=== PATIENT | male | born 1970 ===

== ENCOUNTER 2016-09-10 19:23 | Observation (INO) | payer BC ==
[2016-09-10 19:29] VITALS: TEMP 98.9
[2016-09-10] MEDS ORDERED: Sodium Chloride 0.9% 1,000 ML IV STA (19:48)
--- NOTE | 2016-09-10 19:59 | ED PDOC ---
Arrival/HPI - General Chief Complaint: Abdominal Pain Time Seen by Provider: 09/10/16 19:43 Historian: Patient - History of Present Illness Narrative History of Present Illness (Text): 09/10/16 19:51 46 y.o. male who comes to the ED with complaint of L flank pain starting this morning which improved then worsened again and has been persistent associated with nausea and vomiting. No abd pain or testicular pain or urinary symptoms or hematuria. No cp or sob. Patient took motrin without relief. No history of renal stones. Pain is not worse with movement and no radiation down the leg. Past Medical History - Psychiatric Hx Psychophysiologic Disorder: No Hx Substance Use: No Family/Social History Family/Social History: Other (Grandmother with kidney stones) Smoking Status: Light Smoker < 10 Cigarettes Daily Hx Alcohol Use: Yes Frequency of alcohol use: Socially Hx Substance Use: No Allergies/Home Meds Allergies/Adverse Reactions: Allergies No Known Allergies Allergy (Verified 09/10/16 19:25) Review of Systems - Physician Review All systems were reviewed & negative as marked: Yes - Review of Systems Constitutional: absent: Fevers Eyes: absent: Vision Changes Respiratory: Normal Cardiovascular: Normal Gastrointestinal: Nausea, Vomiting. absent: Abdominal Pain, Constipation, Diarrhea, Hematochezia Genitourinary Male: absent: Dysuria, Frequency, Hematuria, Urinary Output Changes Musculoskeletal: Back Pain Skin: absent: Rash Neurological: absent: Headache, Dizziness, Focal Weakness Endocrine: Normal Hemo/Lymphatic: Normal Psychiatric: Normal Physical Exam Vital Signs Temp Pulse Resp BP Pulse Ox 09/10/16 19:25 98.9 F 55 L 16 117/62 99 Temperature: Afebrile Blood Pressure: Normal Pulse: Regular Respiratory Rate: Normal Appearance: Positive for: Well-Appearing, Non-Toxic, Comfortable Pain Distress: None Mental Status: Positive for: Alert and Oriented X 3 - Systems Exam Head: Present: Atraumatic, Normocephalic Pupils: Present: PERRL Conjunctiva: Present: Normal Mouth: Present: Moist Mucous Membranes Pharnyx: Present: Normal. No: ERYTHEMA, EXUDATE Neck: Present: Normal Range of Motion Respiratory/Chest: Present: Clear to Auscultation, Good Air Exchange. No: Respiratory Distress, Accessory Muscle Use Cardiovascular: Present: Normal S1, S2, Bradycardic. No: Murmurs Abdomen: Present: Normal Bowel Sounds. No: Tenderness, Distention, Peritoneal Signs Genitourinary Male: Present: Normal External Genitalia. No: Lesions, Testicle Tenderness, Penile Swelling, Masses, Testicle Swelling Back: Present: Normal Inspection, CVA Tenderness (L CVA tenderness) Upper Extremity: Present: Normal Inspection. No: Cyanosis, Edema Lower Extremity: Present: Normal Inspection. No: Edema Neurological: Present: GCS=15, CN II-XII Intact, Speech Normal Skin: Present: Warm, Dry, Normal Color. No: Rashes Psychiatric: Present: Alert, Oriented x 3, Normal Insight, Normal Concentration Medical Decision Making ED Course and Treatment: 09/10/16 20:01 46 y.o. male with L flank pain and vomiting with L CVA tenderness on exam. Differential: Renal/Ureteral stone vs muscular pain vs GI distress Plan: - Toradol, IVF - CT a/p - Labs - Medication Orders Current Medication Orders: Discontinued Medications Famotidine (Pepcid) 20 mg IVP STAT STA Stop: 09/10/16 19:50 Last Admin: 09/10/16 20:12 Dose: 20 mg Sodium Chloride (Sodium Chloride 0.9%) 1,000 mls @ 999 mls/hr IV .Q1H1M STA Stop: 09/10/16 20:48 Last Admin: 09/10/16 20:11 Dose: 999 mls/hr Ketorolac Tromethamine (Toradol) 30 mg IVP STAT STA Stop: 09/10/16 19:49 Last Admin: 09/10/16 20:12 Dose: 30 mg Ondansetron HCl (Zofran Inj) 4 mg IVP STAT STA Stop: 09/10/16 19:50 Last Admin: 09/10/16 20:12 Dose: 4 mg ED OBSERVATION Discharge: Yes Date of observation admission: 09/10/16 Time of observation admission: 19:40 - Observation admission statement Patient is being placed in observation because:: He has flank pain and needs evaluation and treatment of symptoms. - Goals of Observation Goals of observation are:: To determine determine diagnosis and improve symptoms. - Progress Note Progress Note: 09/10/16 20:33 Patient says pain is going away; it is still mildly present at this time but does not want any additional analgesia. 09/10/16 21:30 Continues to report pain going away as before; CT a/p is pending. 09/10/16 23:07 CT results: There is a 2 x 4 mm calculi in the distal left ureter. Mild - moderate left hydronephrosis and hydroureter and mild-moderate left perinephric stranding. CT results as noted above. Patient says pain is unremarkable at this time. Discussed results with patient regarding the stone - will dc on nsaid and analgesia and f/u urology. Disposition/Present on Arrival - Present on Arrival Any Indicators Present on Arrival: No History of DVT/PE: No History of Uncontrolled Diabetes: No Urinary Catheter: No History of Decub. Ulcer: No History Surgical Site Infection Following: None - Disposition Have Diagnosis and Disposition been Completed?: Yes Diagnosis: Left ureteral stone Disposition: HOME/ ROUTINE Disposition Time: 19:40 Patient Plan: Discharge Patient Problems: Current Active Problems Problem Status Onset Left ureteral stone Acute Condition: GOOD
[2016-09-10 20:30] LABS: ADD MANUAL DIFF? NO
[2016-09-10 20:36] LABS: BASO # 0.02 K/mm3 (0.0-2.0); BASO % 0.2 % (0.0-3.0); EOS % 0.2 % (1.5-5.0); GRAN # 8.36 (1.4-6.5); GRAN % 84.8 % (50.0-68.0); HEMATOCRIT 40.9 % (42.0-52.0); LYMPH # 0.7 (1.2-3.4); LYMPH % 7.4 % (22.0-35.0); MEAN CELL VOLUME 89.3 fL (80.0-105.0); MEAN CORPUSCULAR HEMOGLOBIN 30.8 pg (25.0-35.0); MEAN CORPUSCULAR HGB CONC 34.5 g/dl (31.0-37.0); MEAN PLATELET VOLUME 11.2 fl (7.0-11.0); MONO # 0.7 (0.1-0.6); MONO % 7.4 % (1.0-6.0); PLATELET COUNT 180 10^3/uL (120.0-450.0); RED CELL DISTRIBUTION WIDTH 13.1 % (11.5-14.5); WHITE BLOOD COUNT 9.9 10^3/ul (4.5-11.0)
[2016-09-10 20:45] LABS: ALB/GLOB RATIO 1.3 (1.1-1.8); ALKALINE PHOSPHATASE 48 U/L (38-133); ALT/SGPT 31 U/L (7-56); AST/SGOT 31 U/L (15-59); BILIRUBIN,TOTAL 0.8 mg/dL (0.2-1.3); BLOOD UREA NITROGEN 22 mg/dL (7-21); CALCIUM 8.7 mg/dL (8.4-10.5); CARBON DIOXIDE 27 mmol/L (21-33); CHLORIDE 106 mmol/L (98-107); GFR AFRICAN-AMERICAN > 60; GLUCOSE,RANDOM 103 mg/dL (70-110); LIPASE 66 U/L (23-300); SODIUM 139 mmol/L (132-148); TOTAL PROTEIN 7.1 g/dL (5.8-8.3)
[2016-09-10 20:47] LABS: PH,URINE 5.5 (4.7-8.0); URINE BILIRUBIN NEGATIVE (NEGATIVE); URINE BLOOD TRACE-INTACT (NEGATIVE); URINE GLUCOSE (UA) NEGATIVE (NEGATIVE); URINE KETONE NEGATIVE (NEGATIVE); URINE LEUKOCYTE ESTERASE NEGATIVE Leu/uL (NEGATIVE); URINE PROTEIN TRACE mg/dL (<30 mg/dL); URINE UROBILINOGEN 0.2 E.U./dL (<1 E.U./dL)
[2016-09-10 20:48] LABS: INR 0.98 (0.93-1.08); PARTIAL THROMBOPLASTIN TIME 24.6 Seconds (23.7-30.8)
[2016-09-10 20:49] LABS: URINE APPEARANCE CLEAR (CLEAR); URINE COLOR YELLOW (YELLOW)
[2016-09-10 21:15] LABS: URINE BACTERIA FEW (NEG); URINE RBC 0 - 2 /hpf (0-2); URINE WBC 0 - 2 /hpf (0-6)
--- NOTE | 2016-09-10 22:35 | CT ---
EXAM: CT Abdomen and Pelvis Without Intravenous Contrast CLINICAL HISTORY: 46 years old, male; Pain; Abdominal pain; Acute; Additional info: L flank pain - R/O renal stone TECHNIQUE: Axial computed tomography images of the abdomen and pelvis without intravenous contrast. This CT exam was performed using one or more of the following dose reduction techniques: automated exposure control, adjustment of the mA and/or kV according to patient size, and/or use of iterative reconstruction technique. Coronal and sagittal reformatted images were created and reviewed. EXAM DATE/TIME: 09/10/2016 7:48 PM COMPARISON: No relevant prior studies available. FINDINGS: The liver, spleen, gallbladder and pancreas appear grossly normal on this non-contrast study. There is a 2 x 4 mm calculi in the distal left ureter. Mild - moderate left hydronephrosis and hydroureter and mild-moderate left perinephric stranding. The bowel appears grossly normal. A normal appendix is identified coronal images 50 through 60. IMPRESSION: Obstructing calculi distal left ureter.
[2016-09-10 23:17] VITALS: PULSE 70; RESP 20; O2SAT 100
[2016-09-10 23:32] VITALS: BP 115/75
== END 2016-09-10 23:13 | disposition home or self-care (01) ==
LOC: ED 19:23 → EROBSV 19:40 → MERGE 19:40
PROVIDERS: ADMIT Emergency Medicine; ATTEND Emergency Medicine
DX: N20.1 Calculus of ureter (principal)
CPT/HCPCS: 36415; 74176; 80053; 81001; 83690; 85025; 85610; 85730; 96374; 96375; 99283; G0378; J1885; J2405; J7040